=== PATIENT | female | born 1950 | race Caucasian/White ===

== ENCOUNTER → 2020-09-10 09:39 | Outpatient (CLI) | payer MEDICARE, OTHER, SELFPAY ==
[2020-09-10 22:31] LABS: Thyroid Stimulating Hormone 6.03 uIU/mL (0.47-4.68)
== END ==
PROVIDERS: Family Provider Family Medicine; PCP Family Medicine; Visit Provider Family Medicine
DX: G47.00 Insomnia, unspecified (principal)
CPT/HCPCS: 84443

== ENCOUNTER → 2020-10-01 11:15 | Outpatient (CLI) | payer MEDICARE, OTHER, SELFPAY ==
[2020-10-01 19:25] LABS: Alanine Aminotransferase 16 IU/L (<35); Albumin 4.4 g/dL (3.5-5.0); Albumin Globulin Ratio 1.5 (1.0-2.8); Alkaline Phosphatase 59 U/L (38-126); Aspartate Aminotransferase 32 IU/L (14-36); BUN Creatinine Ratio 14.5 (6-22); Bilirubin Total 0.8 mg/dL (0.2-1.3); Blood Urea Nitrogen 11 mg/dL (7-17); Carbon Dioxide 28 mmol/L (22-32); Chloride 101 mmol/L (98-107); Estimated Glomerular Filt Rate > 60.0 mL/min (>60); Globulin 2.9 g/dL (1.7-4.1); Glucose 90 mg/dL (80-110); HEMOLYSIS < 15 (0-50); Potassium 4.8 mmol/L (3.4-5.1); Sodium 135 mmol/L (137-145); Total Protein 7.3 g/dL (6.3-8.2)
[2020-10-01 19:28] LABS: Free T4, Direct Thyroxine 1.16 ng/dL (0.78-2.19)
== END ==
PROVIDERS: Family Provider Family Medicine; PCP Family Medicine; Visit Provider Family Medicine
DX: E87.1 Hypo-osmolality and hyponatremia (principal); E03.9 Hypothyroidism, unspecified
CPT/HCPCS: 80053; 84439

== ENCOUNTER → 2020-11-05 11:59 | Outpatient (CLI) | payer MEDICARE, OTHER, SELFPAY ==
[2020-11-05 20:30] LABS: Add Manual Diff / Slide Review NO; Basophils Absolute Auto 100 /uL (0-100); Basophils Percent Auto 2.9 % (0-2); Eosinophils Absolute Auto 300 /uL (0-450); Eosinophils Percent Auto 6.5 % (2-4); Hematocrit 32.1 % (36-46); Hemoglobin 10.7 g/dL (12.0-16.0); Lymphocytes Absolute Auto 1000 /uL (1100-4500); Lymphocytes Percent Auto 24.4 % (25-40); Mean Corpuscular HGB Conc 33.3 % (30-36); Mean Corpuscular Hemoglobin 28.8 PG (26-34); Mean Corpuscular Volume 86.5 fL (80-100); Monocytes Absolute Auto 400 /uL (0-900); Monocytes Percent Auto 10.1 % (3-14); Neutrophils Absolute Auto 2300 /uL (1500-7000); Neutrophils Percent Auto 56.1 % (50-75); Platelet Count 168 X10^3/uL (150-400); Red Blood Cell Count 3.71 X10^6/uL (4.0-5.2); Red Cell Distribution Width 13.9 % (11.6-14.8); White Blood Cell Count 4.1 X10^3/uL (4.5-11.0)
[2020-11-05 20:47] LABS: Total Iron Binding Capacity 283 ug/dL (265-497)
[2020-11-05 22:58] LABS: Alanine Aminotransferase 19 IU/L (<35); Albumin 4.2 g/dL (3.5-5.0); Albumin Globulin Ratio 1.4 (1.0-2.8); Alkaline Phosphatase 68 U/L (38-126); Aspartate Aminotransferase 33 IU/L (14-36); BUN Creatinine Ratio 15.1 (6-22); Bilirubin Total 0.4 mg/dL (0.2-1.3); Blood Urea Nitrogen 11 mg/dL (7-17); C-Reactive Protein Quant < 0.5 mg/dL (<1.0); Calcium 9.9 mg/dL (8.4-10.2); Carbon Dioxide 28 mmol/L (22-32); Chloride 100 mmol/L (98-107); Estimated Glomerular Filt Rate > 60.0 mL/min (>60); Glucose 94 mg/dL (80-110); HEMOLYSIS < 15 (0-50); Potassium 5.1 mmol/L (3.4-5.1); Sodium 133 mmol/L (137-145); Total Protein 7.2 g/dL (6.3-8.2)
[2020-11-05 23:31] LABS: Ferritin 41 ng/mL (11-264)
[2020-11-05 23:45] LABS: Vitamin B12 640 pg/mL (239-931)
[2020-11-06 13:32] LABS: HEMOLYSIS < 15 (0-50); Iron 72 ug/dL (37-170); Percent Iron Saturation 25 % (15-50)
[2020-11-06 13:41] LABS: Transferrin 230 mg/dL (206-381)
== END ==
PROVIDERS: Family Provider Family Medicine; PCP Family Medicine; Referring Provider Physician Assistant Medical; Visit Provider Physician Assistant Medical
DX: D64.9 Anemia, unspecified (principal); T18.108A Unspecified foreign body in esophagus causing other injury, initial encounter; E87.1 Hypo-osmolality and hyponatremia; G60.9 Hereditary and idiopathic neuropathy, unspecified; R73.9 Hyperglycemia, unspecified; Z01.810 Encounter for preprocedural cardiovascular examination; K63.5 Polyp of colon
CPT/HCPCS: 80053; 82607; 82728; 83540; 83550; 85025; 86140

== ENCOUNTER → 2020-11-28 10:43 | Outpatient (CLI) | payer MEDICARE, OTHER, SELFPAY ==
[2020-11-28 20:54] LABS: COVID19 - ORCAS (NP or Nasal) Negative (Negative)
== END ==
PROVIDERS: Family Provider Family Medicine; PCP Family Medicine; Visit Provider Physician Assistant Medical
DX: Z20.822 Contact with and (suspected) exposure to COVID-19 (principal)
CPT/HCPCS: C9803; U0003

== ENCOUNTER → 2021-01-08 12:59 | Outpatient (CLI) | payer MEDICARE, OTHER, SELFPAY ==
[2021-01-08 20:13] LABS: Phosphorous 3.5 mg/dL (2.8-4.1)
== END ==
PROVIDERS: Family Provider Family Medicine; PCP Family Medicine; Visit Provider Family Medicine
DX: D50.9 Iron deficiency anemia, unspecified (principal)
CPT/HCPCS: 84100

== ENCOUNTER → 2021-10-01 12:11 | Outpatient (CLI) | payer MEDICARE, OTHER, SELFPAY ==
[2021-10-01 19:29] LABS: Thyroid Stimulating Hormone 5.53 uIU/mL (0.47-4.68)
== END ==
PROVIDERS: Family Provider Family Medicine; PCP Family Medicine; Visit Provider Family Medicine
DX: Z51.81 Encounter for therapeutic drug level monitoring (principal); G60.9 Hereditary and idiopathic neuropathy, unspecified; D50.9 Iron deficiency anemia, unspecified; D69.6 Thrombocytopenia, unspecified; E87.1 Hypo-osmolality and hyponatremia; F51.04 Psychophysiologic insomnia; I49.8 Other specified cardiac arrhythmias
CPT/HCPCS: 84443

== ENCOUNTER → 2021-12-24 11:55 | Outpatient (CLI) | payer MEDICARE, OTHER, SELFPAY ==
[2021-12-24 20:06] LABS: Add Manual Diff / Slide Review NO; Basophils Absolute Auto 100 /uL (0-100); Basophils Percent Auto 1.5 % (0-2); Eosinophils Absolute Auto 200 /uL (0-450); Eosinophils Percent Auto 3.6 % (2-4); Hematocrit 35.9 % (36-46); Lymphocytes Absolute Auto 1000 /uL (1100-4500); Lymphocytes Percent Auto 21.9 % (25-40); Mean Corpuscular HGB Conc 33.5 % (30-36); Mean Corpuscular Volume 86.6 fL (80-100); Monocytes Absolute Auto 500 /uL (0-900); Monocytes Percent Auto 9.5 % (3-14); Neutrophils Absolute Auto 3000 /uL (1500-7000); Neutrophils Percent Auto 63.5 % (50-75); Platelet Count 158 X10^3/uL (150-400); Red Blood Cell Count 4.14 X10^6/uL (4.0-5.2); Red Cell Distribution Width 13.8 % (11.6-14.8); White Blood Cell Count 4.7 X10^3/uL (4.5-11.0)
[2021-12-24 20:14] LABS: BUN Creatinine Ratio 14.3 (6-22); Blood Urea Nitrogen 12 mg/dL (7-17); Calcium 9.6 mg/dL (8.4-10.2); Carbon Dioxide 30 mmol/L (22-32); Chloride 95 mmol/L (98-107); Estimated Glomerular Filt Rate > 60 mL/min (>60); Glucose 107 mg/dL (80-110); HEMOLYSIS < 15 (0-50); Potassium 4.7 mmol/L (3.4-5.1); Sodium 133 mmol/L (137-145)
[2021-12-24 20:18] LABS: HEMOLYSIS < 15 (0-50); Iron 114 ug/dL (37-170)
[2021-12-24 20:32] LABS: Percent Iron Saturation 45 % (15-50); Total Iron Binding Capacity 251 ug/dL (265-497); Transferrin 199 mg/dL (206-381)
[2021-12-24 20:41] LABS: TSH w/ Reflex to FT4 4.63 uIU/mL (0.47-4.68)
[2021-12-24 20:58] LABS: Vitamin B12 497 pg/mL (239-931)
== END ==
PROVIDERS: Family Provider Family Medicine; PCP Family Medicine; Visit Provider Family Medicine
DX: G60.9 Hereditary and idiopathic neuropathy, unspecified (principal); D50.9 Iron deficiency anemia, unspecified; D69.6 Thrombocytopenia, unspecified; E87.1 Hypo-osmolality and hyponatremia; F51.04 Psychophysiologic insomnia; I49.8 Other specified cardiac arrhythmias; R53.82 Chronic fatigue, unspecified; Z51.81 Encounter for therapeutic drug level monitoring
CPT/HCPCS: 80048; 82607; 83540; 83550; 84443; 85025

== ENCOUNTER → 2022-04-08 14:09 | Outpatient (CLI) | payer MEDICARE, OTHER, SELFPAY ==
[2022-04-08 14:56] LABS: COVID19 -Nasal RAPID Negative (Negative)
== END ==
PROVIDERS: Family Provider Family Medicine; PCP Family Medicine; Referring Provider Orthopaedic Surgery Foot and Ankle Surgery; Visit Provider Orthopaedic Surgery Foot and Ankle Surgery
DX: Z20.822 Contact with and (suspected) exposure to COVID-19 (principal)
CPT/HCPCS: 87635; C9803

== ENCOUNTER 2022-04-09 07:22 | Day surgery (SDC) | payer MEDICARE, OTHER, SELFPAY ==
[2022-04-08 12:13] VITALS: BMI 22.6
[2022-04-09] VITALS (7 sets, daily range): BP systolic 122–149; BP diastolic 66–74; PULSE 72–84; RESP 14–18; TEMP 36.3–36.8; O2SAT 96–99; BMI 22.6
--- NOTE | 2022-04-09 07:31 | PM.HP.1 ---
History of Present Illness History of Present Illness Date Patient Seen: 04/09/22 Time Patient Seen: 07:33 Date of Onset of Symptoms: 04/05/22 Chief complaint: SDC Narrative: Patient is a 71-year-old female that lives on [address] she had a fall on 04/05/2022 and sustained a displaced right distal radius fracture with intra-articular extension. She also hurt her left wrist but no fracture was found. 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 She has remote history of a wrist fracture in 2005 that did not require surgery. She has POTS syndrome. She has been using a cane to help her with ambulation. She did have a successful hip replacement recently. She has multiple allergies to antibiotics but tolerated an antibiotic given with her hip surgery which was done at [facility]. Patient History Medical History Anemia Chronic headache Esophageal foreign body Hyperglycemia Hypothyroidism Left wrist sprain Osteoarthritis of right hip Preop cardiovascular exam Right wrist fracture Syncope and collapse Family & Social History Tobacco & Substance use: Smoking Status Never smoker Meds Home Medications and Allergies Home Medications Medication Instructions Recorded Confirmed Type gabapentin 600 mg tablet 600 mg PO QHS #90 tabs 01/28/16 04/08/22 Rx (Neurontin) pindolol 5 mg tablet 5 mg PO BID #180 tabs 01/28/16 04/08/22 Rx triamcinolone acetonide 0.1 % 1 gm topical QDAY PRN ##90 01/28/16 04/08/22 Rx topical ointment armodafinil 250 mg tablet (Nuvigil) 0.25 tab PO SEE INSTRUCTIONS #23 10/21/16 04/08/22 Rx tabs calcium citrate-vitamin D3 200 tab PO 09/01/20 12/24/21 History [Citracal-D3 Petites] fluticasone propionate [Flonase intranasal 09/01/20 12/24/21 History Allergy Relief] mecobalamin (vitamin B12) 500 mcg PO 09/01/20 12/24/21 History melatonin 3 tab PO 09/01/20 12/24/21 History montelukast 10 mg tablet 10 mg PO QDAY #90 tabs 12/16/21 04/08/22 Rx (Singulair) midodrine 5 mg tablet See Rx Instructions PO TID 12/23/21 04/08/22 History ivabradine 7.5 mg tablet 7.5 mg PO BID POTS 12/24/21 04/08/22 History zolpidem 10 mg tablet 10 mg PO BEDTIME PRN insomnia #90 04/06/22 04/08/22 Rx tabs Allergies Allergy/AdvReac Type Severity Reaction Status Date / Time albuterol [From Combivent] Allergy Intermediate OHTER Verified 12/24/21 11:23 cefotetan [From Cefotan] Allergy Intermediate RASH Verified 12/24/21 11:23 celecoxib [From Celebrex] Allergy Intermediate Verified 12/24/21 11:23 cetirizine Allergy Intermediate RASH Verified 12/24/21 11:23 ciprofloxacin Allergy Intermediate SHORTNESS Verified 12/24/21 11:23 OF BREATH clindamycin Allergy Intermediate RASH Verified 12/24/21 11:23 (CLEOCIN) codeine Allergy Intermediate NAUSEA & Verified 12/24/21 11:23 VOMITING duloxetine [From Cymbalta] Allergy Intermediate COUGH Verified 12/24/21 11:23 ipratropium [From Combivent] Allergy Intermediate OHTER Verified 12/24/21 11:23 ampicillin [AMPICILLIN] Allergy Mild RASH Verified 12/24/21 11:23 Sulfa (Sulfonamide Allergy Mild RASH Verified 12/24/21 11:23 Antibiotics) [SULFA (SULFONAMIDE ANTIBIOTICS)] atovaquone [From Malarone] Allergy Unknown NAUSEA AND Verified 12/24/21 11:23 VOMITING loratadine Allergy Unknown Verified 12/24/21 11:23 [From Claritin-D 12 Hour] proguanil [From Malarone] Allergy Unknown NAUSEA AND Verified 12/24/21 11:23 VOMITING pseudoephedrine Allergy Unknown Verified 12/24/21 11:23 [From Claritin-D 12 Hour] Review of Systems Review of Systems Narrative: No fevers chills nausea or vomiting lightheadedness. Has POTS syndrome. This soreness left wrist. Right wrist in splint. ROS: Yes All systems reviewed with the patient and are negative except as otherwise documented Exam Narrative Exam Narrative: Alert oriented female no acute distress. Using a cane for ambulation in the left hand. Right wrist in a splint. HEENT general exam alert oriented, normocephalic atraumatic Respiratory unlabored on room air lungs clear to auscultation Heart regular rate and rhythm Upper extremities right upper extremity in a splint. Was able to wiggle thumb and fingers. Mild swelling and bruising no shoulder pain Left wrist mild swelling and bruising gross deformities. Demonstrates flexion and extension of the fingers thumb and wrist sensation grossly intact to light touch Lower extremities within normal limits Objective Imaging Right wrist x-rays: My impression: Displaced intra-articular distal radius fracture Radiologist's impression: Displaced distal radius fracture possible intra-articular involvement Assessment & Plan Assessment and plan (1) Right wrist fracture: Status: Acute (2) Left wrist sprain: Qualifiers: Encounter type: initial encounter Qualified Code(s): S63.502A - Unspecified sprain of left wrist, initial encounter Status: Acute Plan Right wrist displaced intra-articular distal radius fracture indicated for open reduction internal fixation help restore alignment and allow early mobilization reduce the risk of posttraumatic arthritis. Plan for surgery. The risks and benefits of the procedure have been discussed with the patient and given the opportunity to ask questions. The risks of surgery include but are not limited to infection, malunion, nonunion, persistence of pain, damage to nerves and blood vessels, posttraumatic arthritis, DVT, PE, coardiopulmonary complications and . The patient expressed a thorough understanding of the risks and benefits of surgery and has elected to proceed. Consent was signed today. Left wrist sprain. No fractures. Some underlying basal thumb arthritis bilaterally. Will treat left wrist conservatively. Weightbear as tolerated COVID-19 COVID-19 status: Negative Time Spent With Patient Critical Care time: I spent a total of [] minutes of critical care time on this patient's care today; this time is exclusive of procedural time. Quality VTE Deep Vein Thrombosis/Pulmonary Embolism Present on Admission: No
[2022-04-09] MEDS: LACTATED RINGERS 1,000 ML 120 ML IV ×2 (08:06→08:52)
--- NOTE | 2022-04-09 08:23 | SUR.PREOP ---
Block start time 0807 . Monitoring initiated and maintained throughout procedure. Oxygen and medications given per anesthesiologist instructions. Patient remained stable throughout procedure, no adverse reactions noted. Block end time 08.
[2022-04-09] MEDS: CEFAZOLIN 2 GM/100 ML PREMIX 100 ML IV (08:25)
--- NOTE | 2022-04-09 08:54 | SUR.OPER ---
Supine on padded OR bed, head on pillow, left arm secured on padded arm board at <90 degrees abduction, right arm on wide arm table controlled by surgeon, legs uncrossed, safety belt at thigh.
[2022-04-09] MEDS: BUPIVACAINE 0.5% W/ EPI (PF) 30 ML VIAL INJ (09:05)
--- NOTE | 2022-04-09 10:11 | DI.RAD.S_ITS ---
PROCEDURE: XR WRIST RT MIN 3V INDICATIONS: RIGHT WRIST FX REPAIR TECHNIQUE: 3 views of the wrist were acquired. COMPARISON: [facility] ([place]), CR, XR WRIST RT MIN 3V, 04/05/2022, 13:22. [facility] ([place]), CR, XR WRIST LT MIN 3V, 04/05/2022, 13:22. FINDINGS: Intraoperative images were obtained for right distal radius fixation. Please see operative note for full details. IMPRESSION: Intraoperative images were obtained for right distal radius fixation. Please see operative note for full details. Dictated by: Jamal Leal M.D. on 04/09/2022 at 9:23 Approved by: Jamal Leal M.D. on 04/09/2022 at 9:24
--- NOTE | 2022-04-09 10:13 | P.OP_ITS ---
Operative Date/Time/Diagnoses Date of procedure: 04/09/22 Time of procedure: 10:13 Pre-op diagnosis: 1. Right wrist distal radius fracture intra-articular 2. Left wrist sprain Post-op diagnosis: same Procedure & Clinicians Procedure: 1. Open reduction internal fixation right intra-articular distal radius fracture CPT code 55211 right 2. Non operative treatment left wrist sprain Same procedure as scheduled: Yes Indications: The patient is a 71-year-old female that fell several days ago and sustained a displaced intra-articular distal radius fracture she also sustained an injury to her left wrist with no definite fracture with a bruising and swelling this was diagnosed as a sprain. She has been indicated for open reduction internal f ixation of her displaced intra-articular distal radius fracture. The risks and benefits of the procedure have been discussed with the patient and given the opportunity to ask questions. The risks of surgery include but are not limited to infection, malunion, nonunion, persistence of pain, damage to nerves and blood vessels, posttraumatic arthritis, DVT, PE, cardiopulmonary complications and . The patient expressed a thorough understanding of the risks and benefits of surgery and has elected to proceed. Consent was signed. Surgeon: Gracie Villafuerte Click Yes if Unassisted: Yes Anesthesia Type: General, Peripheral nerve block and Local (Intraoperative 0.5% Marcaine with epinephrine. Peripheral nerve block was placed by the anesthesia team for postoperative pain control.) Operative Notes Findings: Displaced intra-articular split right distal radius fracture. Closure Type: primary Specimen(s): none sent Prosthetic devices, grafts, tissues, transplants, or devices: Arthrex standard 3 hole volar locking plate.--2.7 locking screws distally. 3.5 cortical and locking screws in the shaft Estimated Blood Loss (mL): 5 Blood products transfused: none Tourniquet time (min): 52 Procedure in detail: The Patient sustained a displaced distal radius fracture was indicated for operative reduction fixation to prevent malunion and prolonged function, loss of motion, wrist arthritis. The risks benefits and alternatives to procedure were discussed at length with the patient expressed understanding. These included but were not limited to bleeding, infection, damage to nerves, prominent hardware, pain, malunion, nonunion, blood clot, pulmonary embolism, and cardiovascular risk associated with general anesthesia. Consent was signed in the office. The patient was seen in the site of surgery was marked in the preoperative area. The patient was then brought to the operating room placed on the operative table in the supine position. Hand table was placed on the operative side. General anesthesia was administered. SCDs were on the legs and all bony prominences were padded. A well-padded brachial tourniquet was placed. A formal time-out procedure was called confirming the patient's side and site of surgery administration of preoperative antibiotics and presence of consent. Preoperative antibiotic was 2 g of Ancef. Implants were in the room accounted for. All agreed. The operative extremity, right wrist, was prepped and draped in the standard sterile fashion. An Esmarch was used for exsanguination and the brachial tourniquet was raised to 250 mm of mercury. Nonsterile tourniquet was not working so a separate sterile tourniquet was applied on the forearm and this achieved good function at 250 mmHg. Standard FCR approach to the wrist was drawn in the incision made. The FCR was exposed. The sheath was opened and the tendon was retracted ulnar protect the palmar cutaneous branch of the median nerve. Floor of the FCR was opened to expose the deep muscles. The FPL was retracted ulnar and the pronator quadratus was released from the radial border and reflected ulnar to expose the distal radius and distal fracture. Fracture was disimpacted and clean. The fracture was reduced with traction flexion ulnar deviation. An 045 K-wire was advanced percutaneously from the radial styloid to the metaphysis to hold the reduction. This also had reduction of the intra-articular split. Reduction was checked fluoroscopy and radial inclination tilt was recreated. Three hole standard Accu Med to volar locking plate was selected and positioned and provisionally fixed with K-wires. Once this was satisfactory, 3 hole standard volar locking Arthrex distal radius plate was applied. Nonlocking 3.5 screws placed in the oblong hole and secured. Distal screws were then placed 1st with nonlocking screws followed by locking screws. These were placed carefully not to penetrate the dorsal cortex. Once this was completed and checked for prominence the final shaft screws were placed. Distal nonlocking screw was loose and was changed out for a locking screw. Again with care to avoid prominence. Final intraoperative images were obtained reviewed demonstrating no evidence of hardware prominence. Wrist motion was checked and was full and maintained and stable DRUJ. The wound was then irrigated and closed in layers. Hemostasis was achieved and the tourniquet was released prior to closing. 3-0 Vicryl was used deep and subcutaneous and 3-0 nylon in the skin. Sterile dressings with a volar splint were applied. There no immediate complications. Surgical counts were correct. The patient tolerated the procedure well was taken recovery room. Complications: none Post-operative Condition: stable Disposition: PACU Plan for aftercare: Nonweightbearing or less than 2 lb limit with the right upper extremity. Wiggle fingers and flex and extend elbow every hour for motion. Keep splint in place. Keep splint dry. Follow up in 2 weeks for suture removal and conversion to a removable wrist splint. A wrist splint will go on the left wrist for comfort, if there is persistent pain in the left wrist repeat x-rays will be taken at the right wrist postoperative follow-up.
[2022-04-09] MEDS: ONDANSETRON 4 MG/2 ML INJ IV (11:20)
--- NOTE | 2022-04-09 11:41 | SUR.PHASEII ---
1140 LORI Pacheco went over dc instruction with pt george Adler.
== END 2022-04-09 12:05 | disposition home or self-care (01) ==
PROVIDERS: Family Provider Family Medicine; PCP Family Medicine; Referring Provider Orthopaedic Surgery Foot and Ankle Surgery; Visit Provider Orthopaedic Surgery Foot and Ankle Surgery
PROC: (CPT 25608; principal; 2022-04-09 07:45)
DX: S52.571A Other intraarticular fracture of lower end of right radius, initial encounter for closed fracture (principal); G89.18 Other acute postprocedural pain; S63.502A Unspecified sprain of left wrist, initial encounter; G90.A Postural orthostatic tachycardia syndrome [POTS]; W19.XXXA Unspecified fall, initial encounter
CPT/HCPCS: 25608; 64450; 73110; 76000; C1713; J0690; J1100; J2250; J2405; J2704; J3010

== ENCOUNTER → 2022-04-26 16:44 | Outpatient (CLI) | payer MEDICARE, OTHER, SELFPAY | PROVIDERS: Family Provider Family Medicine; PCP Family Medicine; Visit Provider Family Medicine | DX: N39.0 Urinary tract infection, site not specified (principal) | CPT/HCPCS: 87077; 87086; 87186 ==

== ENCOUNTER → 2022-05-03 14:17 | Outpatient (CLI) | payer MEDICARE, OTHER, SELFPAY ==
[2022-05-03 20:19] LABS: Appearance Urine UA CLEAR; Bilirubin Urine UA NEGATIVE (NEGATIVE); Color Urine UA YELLOW; Glucose Urine UA NEGATIVE (Negative); Ketones Urine UA NEGATIVE (NEGATIVE); Leukocyte Esterase Urine UA TRACE (NEGATIVE); Nitrite Urine UA NEGATIVE (Negative); Occult Blood Urine UA TRACE-INTACT (Negative); Protein Urine UA NEGATIVE (Negative); Urobilinogen Urine UA 0.2 E.U./dL (0.2)
[2022-05-03 20:21] LABS: pH Urine UA 7.5 (4.5-8.0)
[2022-05-03 21:31] LABS: RBC Urine 1-5/HPF (0-5/HPF); WBC Urine 1-5/HPF (0-5/HPF)
[2022-05-03 21:32] LABS: Bacteria Urine None Seen; Culture Indicated Urine Cult Not Indicated
== END ==
PROVIDERS: Family Provider Family Medicine; PCP Family Medicine; Visit Provider Family Medicine
DX: N30.00 Acute cystitis without hematuria (principal)
CPT/HCPCS: 81003; 81015

== ENCOUNTER → 2023-03-15 14:36 | Outpatient (CLI) | payer MEDICARE, OTHER, SELFPAY ==
--- NOTE | 2023-03-15 | DI.CT.S_ITS ---
PROCEDURE: CT SINUS SCREEN WO CON INDICATIONS: Acute recurrent sinusitis, unspecified TECHNIQUE: Noncontrast 3.0 mm axial images acquired from the frontal sinuses to the mid-sella, with coronal and sagittal reformats. For radiation dose reduction, the following was used: automated exposure control, adjustment of mA and/or kV according to patient size. COMPARISON: [facility], , SOFT TISSUE NECK, 03/12/2015, 21:28. FINDINGS: Image quality: Excellent. Maxillary Sinuses: Postoperative change can be seen involving the anterior medial aspects of each maxillary sinus, with plate and screw fixation. Moderate mucosal thickening can be seen on both sides, right worse than left. There is demineralization of portions of the medial colindres of the maxillary sinuses. Ethmoid Air Cells: There is moderate to prominent mucosal thickening within the ethmoid air cells. There is demineralization of the ethmoid air cell septations. Sphenoid Sinuses: No bony remodeling or destruction. Moderate mucosal thickening can be seen within the medial left sphenoid sinus. Frontal Sinuses: Moderate to prominent mucosal thickening can be seen within the frontal sinuses. Bony remodeling changes are seen, with thickening of the outer colindres of the frontal sinuses. Ostiomeatal Complexes: The ostiomeatal complexes are patent, yet they are constitutionally narrowed, with bilateral Dipesh cells. They are nearly completely narrowed by soft tissue thickening. The ostiomeatal complexes are demineralized. Miscellaneous: Visualized intra-orbital contents are normal. No ursula bullosa or paradoxical turbinate curvature. There is mild leftward nasal septal deviation, with a leftward directed bony nasal septal spur. There is at least moderate bilateral temporomandibular joint degenerative change seen. IMPRESSION: Multifocal prominent paranasal sinus disease can be seen, which is overall most prominent within the frontal sinuses and the ethmoid air cells. Bony remodeling changes are seen, which are consistent with chronic sinusitis. Abnormal ostiomeatal complexes, which are constitutionally narrowed and are further nearly completely narrowed by soft tissue thickening. Prior postoperative change can be seen, with plate and screw fixation the anterior medial aspects of each maxillary sinus. Dictated by: Luis Eduardo Olvera M.D. on 03/15/2023 at 15:57 Approved by: Luis Eduardo Olvera M.D. on 03/15/2023 at 16:02
== END ==
PROVIDERS: Family Provider Family Medicine; PCP Family Medicine; Referring Provider Family Medicine; Visit Provider Family Medicine
DX: J32.9 Chronic sinusitis, unspecified (principal); Z98.890 Other specified postprocedural states
CPT/HCPCS: 70486